=== PATIENT | male | born 1935 | race Caucasian/White ===

== ENCOUNTER 2016-05-07 10:26 | Day surgery (SDC) | payer OTHER ==
[~2016-05-07] VITALS: Ht 172.7 cm; Wt 102.5 kg
[~2016-05-07 10:26] MED LIST: ASPI81 PO; BISO5TAB2 PO; RAMI10CA PO; SIMV20TA PO
[2016-05-07 11:10] VITALS: BP 177/113; PULSE 43; RESP 18; TEMP 97.8; O2SAT 97
[2016-05-07] MEDS ORDERED: ceFAZolin 2 GM PREMIX 50 ML IV SCH (11:15)
[2016-05-07] MEDS ORDERED: MUPIROCIN 2% OINT 1 APPLIC/GM SYR NASAL SCH (11:15)
[2016-05-07] MEDS ORDERED: METOPROLOL TARTRATE 25 MG TAB PO PRN ×2 (11:15)
[2016-05-07] MEDS: NS 1000 ML IV SCH (11:15)
[2016-05-07] MEDS ORDERED: CHLORHEXIDINE GLUCONATE 2 % 1 PACK (2 CLOTHS) TOP SCH (11:15)
[2016-05-07] MEDS ORDERED: INSULIN HUMAN REGULAR 1,000 UNITS/10 ML VIAL SQ PRN ×2 (11:15)
[2016-05-07] MEDS ORDERED: SODIUM CHLORID 0.9% 500 ML IV SCH ×2 (11:15)
[2016-05-07] MEDS ORDERED: POVIDONE IODINE 5% (ANTISEPSIS KIT) 4 APPLICATIONS EACH NARE SCH (11:15)
[2016-05-07] MEDS ORDERED: LACTATED RINGER'S 1000 ML IV SCH (11:15)
[2016-05-07] MEDS: LACTATED RINGER'S 1000 ML IV SCH (11:15)
[2016-05-07] MEDS ORDERED: LORazepam 1 MG TAB SL SCH (11:15)
[2016-05-07 11:26] LABS: AUTOMATED NEUTROPHIL # 6.1 TH/MM3 (1.8-7.7); BASOPHIL # 0.1 TH/MM3 (0-0.2); BASOPHIL % 0.5 % (0.0-2.0); EOSINOPHIL # 0.3 TH/MM3 (0-0.4); EOSINOPHIL % 3.4 % (0.0-4.0); HEMATOCRIT 41.6 % (39.0-51.0); HEMO FLAGS DIFF FINAL; LYMPH % 23.5 % (9.0-44.0); LYMPHOCYTE # 2.2 TH/MM3 (1.0-4.8); MEAN CELL VOLUME 86.9 FL (80.0-100.0); MEAN CORPUSCULAR HEMOGLOBIN 29.8 PG (27.0-34.0); MEAN CORPUSCULAR HGB CONC 34.3 % (32.0-36.0); NEUT % 64.6 % (16.0-70.0); PLATELET COUNT 241 TH/MM3 (150-450); RED BLOOD COUNT 4.78 MIL/MM3 (4.50-5.90); RED CELL DISTRIBUTION WIDTH 13.1 % (11.6-17.2); WHITE BLOOD COUNT 9.4 TH/MM3 (4.0-11.0)
[2016-05-07] MEDS ORDERED: SODIUM CHLOR 0.9% 250 ML INJ 250 ML ONE (11:33)
[2016-05-07] MEDS ORDERED: VANCOMYCIN HCL 1000 MG VIAL ONE (11:33)
[2016-05-07] MEDS ORDERED: CINN500C PO (11:34)
[2016-05-07] MEDS ORDERED: ASPI1TAB69 PO (11:34)
[2016-05-07] MEDS ORDERED: ATOR10TA15 PO (11:34)
[2016-05-07] MEDS ORDERED: ACET1CAP18 PO (11:34)
[2016-05-07 11:35] LABS: APTT (PATIENT) 28.6 SEC (24.3-30.1); PROTHROMBIN TIME - PATIENT 11.3 SEC (9.8-11.6)
[2016-05-07] MEDS ORDERED: FISH1000 (11:35)
[2016-05-07] MEDS ORDERED: PRO-CAP PO (11:35)
[2016-05-07] MEDS ORDERED: VITA400T2 PO (11:35)
[2016-05-07] MEDS ORDERED: RAMI10CA PO (11:35)
[2016-05-07 11:42] LABS: BICARBONATE 29.2 MEQ/L (21.0-32.0); POTASSIUM 3.6 MEQ/L (3.5-5.1)
[2016-05-07] MEDS ORDERED: KETAMINE HCL 500 MG/5 ML VIAL ONE (13:38)
[2016-05-07] MEDS ORDERED: VANCOMYCIN 500 MG VIAL ONE (13:58)
[2016-05-07] MEDS ORDERED: LIDOCAINE HCL 2% 50 ML VIAL ONE (13:58)
[2016-05-07] MEDS ORDERED: MIDAZOLAM HCL 2 MG/2 ML VIAL ONE (14:08)
[2016-05-07] MEDS ORDERED: METOPROLOL TARTRATE 5 MG/5 ML VIAL ONE (14:45)
[2016-05-07] MEDS ORDERED: PROPOFOL 200 MG/20 ML AMP IV ONE (15:15)
[2016-05-07] MEDS ORDERED: SODIUM CHLORIDE 0.9% FLUSH 5 ML FLUSH IVF PRN (15:45)
[2016-05-07] MEDS ORDERED: ONDANSETRON HCL 4 MG/2 ML VIAL IV PRN (15:45)
[2016-05-07] MEDS ORDERED: TEMAZEPAM 15 MG CAP PO PRN (15:45)
[2016-05-07] MEDS ORDERED: ACETAMINOPHEN/CODEINE 300 MG/30 MG TAB PO PRN (15:45)
--- NOTE | 2016-05-07 16:22 | RADRPT ---
EXAM DATE/TIME: 05/07/2016 15:41 [place] COMPARISON: No previous studies available for comparison. INDICATIONS : Post-Op pacemaker placment. MEDICAL HISTORY : None. SURGICAL HISTORY : None. ENCOUNTER: Initial ACUITY: 1 day PAIN SCORE: Non-responsive. LOCATION: Bilateral chest FINDINGS: A single portable frontal view of the chest shows a dual-lead pacing device on the left. Leads termin ate in the region of the right atrium and right ventricle respectively. No pneumothorax. Heart is mil dly enlarged. Linear scarring within the left midlung. Lungs are clear otherwise. No effusions. CONCLUSION: Cardiomegaly. Lungs are clear. No pneumothorax. Minh Robles Jr., MD on May 07, 2016 at 16:13 Board Certified Radiologist. This report was verified electronically.
[2016-05-07] MEDS ORDERED: LABETALOL HCL 100 MG/20 ML VIAL ONE (16:25)
[2016-05-07] MEDS ORDERED: DO NOT ADM ANY ANTICOAGULANT DRUGS XX PRN (16:45)
[2016-05-07 19:00] VITALS: BP 162/105; PULSE 60; PULSE 61; RESP 20; TEMP 98.3; O2SAT 96
[2016-05-07 20:00] VITALS: PULSE 66
[2016-05-07] MEDS: LABETALOL HCL 100 MG/20 ML VIAL IV PRN (20:48)
[2016-05-07] MEDS: SODIUM CHLORIDE 0.9% FLUSH 5 ML FLUSH IVF SCH (20:48)
[2016-05-07] MEDS: ACETAMINOPHEN/CODEINE 300 MG/30 MG TAB PO PRN (20:48)
[2016-05-07 21:00] VITALS: PULSE 62
[2016-05-07] MEDS ORDERED: ATORVASTATIN 10 MG TAB PO SCH (21:00)
[2016-05-07 22:00] VITALS: PULSE 60
[2016-05-07] MEDS: ACETAMINOPHEN 325 MG TAB PO SCH (22:31)
[2016-05-07 23:00] VITALS: BP 156/90; PULSE 60; RESP 22; TEMP 98.5; O2SAT 95
[2016-05-08] VITALS (16 sets, daily range): BP systolic 167–178; BP diastolic 74–98; PULSE 60–150; RESP 18–20; TEMP 98–98.4; O2SAT 94–98
[2016-05-08] MEDS: ceFAZolin 2 GM PREMIX 50 ML IV SCH ×2 (03:12→08:32)
[2016-05-08] MEDS: LABETALOL HCL 100 MG/20 ML VIAL IV PRN (03:14)
[2016-05-08] MEDS: ACETAMINOPHEN 325 MG TAB PO SCH ×2 (06:38→08:31)
[2016-05-08] MEDS: SODIUM CHLORIDE 0.9% FLUSH 5 ML FLUSH IVF SCH (08:32)
[2016-05-08] MEDS ORDERED: RAMIPRIL 5 MG CAP PO SCH (09:00)
[2016-05-08] MEDS ORDERED: BISOPROLOL/HCTZ 10 MG/6.25 MG TAB PO SCH ×2 (09:00)
[2016-05-08] MEDS ORDERED: LACTOBACILLUS ACIDOPHILUS TAB PO SCH (09:00)
[2016-05-08] MEDS ORDERED: ASPIRIN EC 81 MG TABEC PO SCH (09:00)
[2016-05-08] MEDS ORDERED: ZIAC106.25 PO (09:00)
[2016-05-08] MEDS ORDERED: CEPH-460 PO (09:04)
--- NOTE | 2016-05-08 09:10 | PD.CARD.PN ---
Subjective Subjective Remarks No complaints. Objective Medications Current Medications Medications (Trade) Dose Ordered Sig/Isauro Route Start Time Stop Time Status Last Admin Lactated Ringer's 1,000 ml @ 30 mls/hr Q24H IV 05/07/16 11:15 Sodium Chloride 500 ml @ 30 mls/hr [id number] IV 05/07/16 11:15 05/08/16 11:14 Sodium Chloride 1,000 ml @ 30 mls/hr Q24H IV 05/07/16 11:15 (Ancef 2 Gm Premix) 50 ml @ 100 mls/hr Q8H IV 05/07/16 18:00 05/08/16 10:29 05/08/16 08:32 (Restoril) 15 mg HS PRN PO 05/07/16 15:45 05/07/16 22:31 (Zofran Inj) 4 mg Q4H PRN IV 05/07/16 15:45 (Tylenol-Codeine #3) 1 tab Q4H PRN PO 05/07/16 15:45 (Tylenol-Codeine #3) 2 tab Q4H PRN PO 05/07/16 15:45 05/07/16 20:48 (NS Flush) 2 ml BID IVF 05/07/16 21:00 05/08/16 08:32 (NS Flush) 2 ml UNSCH PRN IVF 05/07/16 15:45 (Tylenol) 325 mg Q6H PO 05/07/16 16:00 05/08/16 08:31 (Ecotrin Ec) 81 mg DAILY PO 05/08/16 09:00 05/08/16 08:30 (Lipitor) 10 mg HS PO 05/07/16 21:00 05/07/16 20:48 (Altace) 10 mg DAILY PO 05/08/16 09:00 05/08/16 08:30 (Lactinex) 1 tab DAILY PO 05/08/16 09:00 05/08/16 08:30 Miscellaneous Information ALL NURSING DEPARTME... UNSCH PRN XX 05/07/16 16:45 05/08/16 16:44 (Trandate Inj) 10 mg Q6H PRN IV 05/07/16 20:45 05/08/16 03:14 Patient Own Medication PT OWN MED: BISOPROLOL/ HCTZ (Z... DAILY PO 05/08/16 09:00 Hold Vital Signs / I&O Vital Signs Date Time Temp Pulse Resp B/P Pulse Ox O2 Delivery O2 Flow Rate FiO2 05/08/16 08:42 98.4 62 18 178/98 98 05/08/16 08:04 60 05/08/16 07:35 61 05/08/16 06:00 60 05/08/16 05:00 60 05/08/16 04:00 60 05/08/16 03:00 98.4 60 20 167/94 94 05/08/16 03:00 60 05/08/16 02:00 60 05/08/16 01:00 60 05/08/16 00:00 60 05/07/16 23:00 98.5 60 22 156/90 95 05/07/16 23:00 60 05/07/16 22:00 60 05/07/16 21:00 62 05/07/16 20:00 66 05/07/16 19:00 98.3 61 20 162/105 96 05/07/16 19:00 60 05/07/16 11:10 97.8 43 18 177/113 97 I/O 05/07/16 05/07/16 05/07/16 05/08/16 05/08/16 05/08/16 07:00 15:00 23:00 07:00 15:00 23:00 Intake Total 530 ml Output Total 400 ml Balance 130 ml Intake Oral 480 ml IV Total 50 ml Output Urine Total 400 ml # Bowel Movements 0 Physical Exam GENERAL: Well-nourished, well-developed patient. SKIN: Warm and dry. LCW incision well approximated with no erythema, swelling or drainage. HEAD: Normocephalic. EYES: No scleral icterus. No injection or drainage. NECK: Supple, trachea midline. No JVD or lymphadenopathy. CARDIOVASCULAR: Regular rate and rhythm without murmurs, gallops, or rubs. RESPIRATORY: Breath sounds equal bilaterally. No accessory muscle use. GASTROINTESTINAL: Abdomen soft, non-tender, nondistended. EXTREMITIES: No cyanosis, or edema. NEUROLOGICAL: Awake, alert, and oriented x 3. Non-focal. Laboratory Laboratory Tests Test 05/07/16 05/07/16 11:00 11:05 Blood Type O POSITIVE O POSITIVE Antibody Screen NEGATIVE White Blood Count 9.4 TH/MM3 Red Blood Count 4.78 MIL/MM3 Hemoglobin 14.3 GM/DL Hematocrit 41.6 % Mean Corpuscular Volume 86.9 FL Mean Corpuscular Hemoglobin 29.8 PG Mean Corpuscular Hemoglobin 34.3 % Concent Red Cell Distribution Width 13.1 % Platelet Count 241 TH/MM3 Mean Platelet Volume 9.6 FL Neutrophils (%) (Auto) 64.6 % Lymphocytes (%) (Auto) 23.5 % Monocytes (%) (Auto) 8.0 % Eosinophils (%) (Auto) 3.4 % Basophils (%) (Auto) 0.5 % Neutrophils # (Auto) 6.1 TH/MM3 Lymphocytes # (Auto) 2.2 TH/MM3 Monocytes # (Auto) 0.8 TH/MM3 Eosinophils # (Auto) 0.3 TH/MM3 Basophils # (Auto) 0.1 TH/MM3 CBC Comment DIFF FINAL Differential Comment Prothrombin Time 11.3 SEC Prothromb Time International 1.0 RATIO Ratio Activated Partial 28.6 SEC Thromboplast Time Sodium Level 143 MEQ/L Potassium Level 3.6 MEQ/L Chloride Level 107 MEQ/L Carbon Dioxide Level 29.2 MEQ/L Anion Gap 7 MEQ/L Blood Urea Nitrogen 17 MG/DL Creatinine 1.34 MG/DL Estimat Glomerular Filtration 51 ML/MIN Rate Random Glucose 109 MG/DL Calcium Level 8.7 MG/DL Imaging Last Impressions Chest X-Ray 05/07/16 0000 Signed Impressions: Service Date/Time: April 15:41 - CONCLUSION: Cardiomegaly. Lungs are clear. No pneumothorax. Minh Robles Jr., MD Assessment and Plan Problem List: (1) Bradycardia Assessment and Plan: Ziac held d/t bradycardia pre-procedure. BP elevated, will resume. Stable s/p PPM implant. (2) S/P cardiac pacemaker procedure Assessment and Plan: Device function appropriate, CXR negative. Post operative restrictions discussed at length with pt. Verbalized understanding. All questions answered. DC home, f/u with Dr. Purdy in 2 weeks. (3) Atrial fibrillation Assessment and Plan: Developed afib/RVR in a.m., asymptomatic, was given 60 mg of PO cardizem and converted to NSR/Paced. Per my d/w Dr. Purdy, Eliquis 5mg BID and Cardizem CD 240mg po daily were initiated. Pt. remained in NSR and was d/c'd home with prescriptions for both meds. F/U with Dr. Purdy in 2 weeks. Assessment and Plan D/W Dr. Purdy, RN, pt. Sima Camp May 08, 2016 09:10
[2016-05-08] MEDS: DILTIAZEM HCL 60 MG TAB PO SCH ×2 (09:45→12:00)
[2016-05-08] MEDS ORDERED: APIXABAN 5 MG TABLET PO SCH (10:00)
[2016-05-08] MEDS: NS 1000 ML IV SCH (11:15)
[2016-05-08] MEDS: LACTATED RINGER'S 1000 ML IV SCH (11:15)
[2016-05-08] MEDS ORDERED: DILTIAZEM-CD 240 MG CAP ER PO ONE (13:00)
[2016-05-08] MEDS: ACETAMINOPHEN/CODEINE 300 MG/30 MG TAB PO PRN (14:02)
--- NOTE | 2016-05-08 15:14 | MP ---
cc: HAYDE BARNEY M.D. DATE OF SURGERY: 05/07/2016. OPERATION: Dual-chamber permanent pacemaker implantation and cardioversion. SURGEON: aHyde Barney MD. INDICATIONS FOR THE PROCEDURE: Mr. Garcia is a 80-year-old gentleman with severe bradycardia, near syncope who will undergo dual-chamber permanent pacemaker insertion. The risks, the nature and the benefits of the procedure were clearly stated to him. The risks include pneumothorax, cardiac perforation, stroke and even . He understood and agreed to proceed. DESCRIPTION OF THE PROCEDURE IN DETAIL: After written informed consent was obtained, the patient was brought to the EP lab where he was prepped and draped in the usual sterile fashion. Conscious sedation was initiated and maintained throughout the procedure by the anesthesiologist. Once sedation was verified, the left infraclavicular area was anesthetized with 2% Xylocaine. Using modified Seldinger technique, the left subclavian vein was cannulated on two occasions and two guidewire were advanced. Then using a #11 scalpel, a 2-cm incision was made two fingerbreadths below the left clavicle. This incision was then taken down to the deep fascial layer using Bovie cautery and blunt dissection. Into the inferomedial direction, a device pocket was dissected. Then the wire was dissected into the pocket. The 2-0 Vicryl suture was placed around the wires to prevent back bleeding. At this point over the lateral wire, an 8-Chinese dilator and introducer were advanced. As the dilator and wire were removed, an active fixation right ventricular pacing and sensing lead was advanced. After adequate pacing and sensing thresholds were obtained, the lead was secured into the pocket using #2 Ethibond suture. At that point, the patient went into atrial fibrillation. Through the remaining wire, an 8-Chinese dilator and introducer was advanced. As the dilator and wire were removed, an active fixation right atrial pacing and sensing lead was advanced. At this point, I decided to proceed with cardioversion. A 200 sync biphasic joule was delivered that converted the patient into sinus rhythm. Then after adequate pacing and sensing thresholds were obtained, the lead was secured into the pocket using #2 Ethibond suture. Then the patient went back again into atrial fibrillation. I did administer 5 mg of metoprolol. The pocket was copiously irrigated using antibiotic solution. The leads were connected to the generator and placed into the pocket. I did proceed with wound closure. The deep fascial layer was approximated with 2-0 Vicryl suture in a continuous fashion. The subcutaneous layer was approximated with 2-0 Vicryl suture in a continuous fashion. The subcuticular layer was approximated with 2-0 Vicryl suture in a continuous fashion. Dermabond adhesive was applied to the wound followed by a sterile pressure dressing. At this point, I decided to proceed again with cardioversion. Another 200 sync biphasic was delivered that converted the patient back into sinus rhythm. No incident report. The patient tolerated the procedure. Blood loss was minimal. 1. IMPLANTED HARDWARE: The implanted permanent pacemaker is a . MD LAVELLE Doshi/SWATI /3:49 PM /3:10 PM
--- NOTE | 2016-05-08 16:46 | EKG ---
Date Performed: 05/07/2016 Time Performed: 22:01:52 PTAGE: 80 years EKG: Sinus rhythm Demand pacing Septal T wave changes are nonspecific Abnormal ECG PREVIOUS TRACING : 05/07/2016 12.01 Demand pacing is now noted. Otherwise, no change. DOCTOR: Jeffery Andres Interpretating Date/Time 05/08/2016 16:46:01
--- NOTE | 2016-05-08 16:57 | EKG ---
Date Performed: 05/07/2016 Time Performed: 12:01:48 PTAGE: 80 years EKG: Sinus bradycardia with 1st degree A-V block Prolonged QT interval Compared to prior tracing no significant change Abnormal ECG PREVIOUS TRACING : 08/03/2011 10.37 DOCTOR: Jeffery Andres Interpretating Date/Time 05/08/2016 16:54:01
--- NOTE | 2016-05-08 16:59 | EKG ---
Date Performed: 05/08/2016 Time Performed: 05:25:38 PTAGE: 80 years EKG: Ventricular pacing Pacemaker rhythm - no further analysis Compared to prior tracing no sign ificant change Abnormal ECG PREVIOUS TRACING : 05/07/2016 22.01 DOCTOR: Jeffery Andres Interpretating Date/Time 05/08/2016 16:55:03
--- NOTE | 2016-05-08 17:00 | EKG ---
Date Performed: 05/08/2016 Time Performed: 09:20:26 PTAGE: 80 years EKG: Atrial fibrillation with rapid ventricular response Extensive ST-T changes may be due to my ocardial ischemia Abnormal ECG PREVIOUS TRACING : 05/08/2016 05.25 Compared to previous tracing, atrial fibrillation is new. S T changes suggest ischemia. DOCTOR: Jeffery Andres Interpretating Date/Time 05/08/2016 16:55:28
[2016-05-08] MEDS ORDERED: CEPHALEXIN MONOHYDRATE 500 MG CAP PO SCH (22:00)
== END 2016-05-08 15:32 | disposition home or self-care (01) ==
LOC: HDIC 10:26 → HDOC 10:26 → HCIN 19:06 → HDOC 05-08 15:32
PROVIDERS: ATTEND Internal Medicine Interventional Cardiology
DX: I49.5 Sick sinus syndrome (principal); I48.0 Paroxysmal atrial fibrillation; I12.9 Hypertensive chronic kidney disease with stage 1 through stage 4 chronic kidney disease, or unspecified chronic kidney disease; N18.3 Chronic kidney disease, stage 3 (moderate); R06.02 Shortness of breath
CPT/HCPCS: 33208; 71010; 80048; 85025; 85610; 85730; 86850; 86900; 86901; 93005; C1785; C1898; J0690; J2250; J3370; J7050